=== PATIENT | female | born 1970 | race Caucasian/White ===

== ENCOUNTER 2019-09-24 08:09 | Outpatient (CLI) | payer OTHER, SELFPAY ==
--- NOTE | ~2019-09-24 | MM_ITS ---
EXAMINATION: MM screening shell BI w arely HISTORY: Screening mammogram TECHNIQUE: Craniocaudal and mediolateral oblique 3-D tomosynthesis images were obtained and synthetic 2-D images were generated. CAD analysis was submitted and interpreted. COMPARISON: Comparison to multiple prior studies sequentially, with oldest reviewed study dated 02/28. BREAST PARENCHYMAL COMPOSITION: The breasts are almost entirely fatty. FINDINGS: There is no evidence of suspicious mass, calcification, or architectural distortion to sugg est malignancy in either breast. There has been no suspicious interval change. IMPRESSION: 1. No mammographic evidence of malignancy. 2. Recommend routine screening mammography in one year. BI-RADS Category 1: Negative Reviewed, dictated and finalized at location A.
== END 2019-09-24 08:10 | disposition home or self-care (01) ==
PROVIDERS: Visit Provider Obstetrics & Gynecology Gynecology
DX: Z12.31 Encounter for screening mammogram for malignant neoplasm of breast (principal)
CPT/HCPCS: 77063; 77067

== ENCOUNTER 2021-09-24 08:10 | Outpatient (CLI) | payer OTHER, SELFPAY ==
--- NOTE | ~2021-09-24 | MM_ITS ---
EXAMINATION: MM screening shell BI w arely HISTORY: Screening TECHNIQUE: Craniocaudal and mediolateral oblique 3-D tomosynthesis images were obtained and synthetic 2-D images were generated. CAD analysis was submitted and interpreted. COMPARISON: Comparison to multiple prior studies sequentially, with oldest reviewed study dated 04/19. BREAST PARENCHYMAL COMPOSITION: The breasts are almost entirely fatty. FINDINGS: There is no evidence of suspicious mass, calcification, or architectural distortion to sugg est malignancy in either breast. There has been no suspicious interval change. IMPRESSION: 1. No mammographic evidence of malignancy. 2. Recommend routine screening mammography in one year. BI-RADS Category 1: Negative Reviewed, dictated and finalized at location A.
== END 2021-09-24 08:11 | disposition home or self-care (01) ==
LOC: ANHIMG 08:12
PROVIDERS: Visit Provider Nurse Practitioner
DX: Z12.31 Encounter for screening mammogram for malignant neoplasm of breast (principal)
CPT/HCPCS: 77063; 77067

== ENCOUNTER 2023-03-13 09:16 | Outpatient (CLI) | payer OTHER, SELFPAY ==
--- NOTE | ~2023-03-13 | MM_ITS ---
EXAMINATION: MM screening shell BI w arely HISTORY: Screening TECHNIQUE: Craniocaudal and mediolateral oblique 3-D tomosynthesis images were obtained and synthetic 2-D images were generated. CAD analysis was submitted and interpreted. COMPARISON: Comparison to multiple prior studies sequentially, with oldest reviewed study dated 04/21. BREAST PARENCHYMAL COMPOSITION: There are scattered areas of fibroglandular density. FINDINGS: There is no evidence of suspicious mass, calcification, or architectural distortion to sugg est malignancy in either breast. There has been no suspicious interval change. IMPRESSION: 1. No mammographic evidence of malignancy. 2. Recommend routine screening mammography in one year. BI-RADS Category 1: Negative Reviewed, dictated and finalized at location A. S PROFESSIONAL
== END 2023-03-13 09:17 | disposition home or self-care (01) ==
PROVIDERS: Visit Provider Nurse Practitioner
DX: Z12.31 Encounter for screening mammogram for malignant neoplasm of breast (principal)
CPT/HCPCS: 77063; 77067

== ENCOUNTER 2023-11-09 14:38 | Outpatient (CLI) | payer OTHER, SELFPAY ==
--- NOTE | ~2023-11-09 | US_ITS ---
US pelvic complete w TV Ordering provider: Trena Luo, History: . pelvic pain . Comparison: None. Technique: Transabdominal and endovaginal ultrasound of the pelvis (Doppler ultrasound interrogation techniques used as needed for this exam.) FINDINGS: CERVIX: Normal. UTERUS: Measures 7x 3.4x 5.4 cm in length which is within normal limits and is anteverted. No myomet rial masses. Heterogenous echogenicity. ENDOMETRIUM: Normal in thickness measuring 2.6 mm. No endometrial masses, cysts or fluid. CUL DE SAC: No free fluid. RIGHT OVARY: Not visualized. LEFT OVARY: Normal in size measuring 1.4x 0.8x 1.5 cm. Normal echotexture. Doppler vascular flow pres ent. ADNEXA: Normal. No mass. IMPRESSION: Heterogenous echogenicity of the uterus. Possibility of fibroids cannot be excluded. Follow-up advise d. Right ovary is not visualized. Otherwise, normal pelvic ultrasound. Reviewed, dictated and finalized at location A. IMPRESSION: Heterogenous echogenicity of the uterus. Possibility of fibroids cannot be excl uded. Follow-up advised. Right ovary is not visualized. Otherwise, normal pelvi c ultrasound.
== END 2023-11-09 14:39 | disposition home or self-care (01) ==
LOC: ANHIMG 14:38
PROVIDERS: Visit Provider Nurse Practitioner
DX: R10.2 Pelvic and perineal pain (principal)
CPT/HCPCS: 76830; 76856

== ENCOUNTER 2024-04-15 10:04 | Outpatient (CLI) | payer OTHER, SELFPAY ==
--- NOTE | ~2024-04-15 | MM_ITS ---
EXAMINATION: MM screening shell BI w arely HISTORY: Screening TECHNIQUE: Craniocaudal and mediolateral oblique 3-D tomosynthesis images were obtained and synthetic 2-D images were generated. CAD analysis was submitted and interpreted. COMPARISON: Comparison to multiple prior studies sequentially, with oldest reviewed study dated 06/2016. BREAST PARENCHYMAL COMPOSITION: Not Dense: The breasts are almost entirely fatty. FINDINGS: There is no evidence of suspicious mass, calcification, or architectural distortion to sugg est malignancy in either breast. There has been no suspicious interval change. IMPRESSION: 1. No mammographic evidence of malignancy. 2. Recommend routine screening mammography in one year. BI-RADS Category 1: Negative Reviewed, dictated and finalized at location A. 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
--- NOTE | ~2024-04-15 | DEXA_ITS ---
Bone Density Report Name: MANISHA SANTOS Age: 53 Sex: Female Ethnicity: White Date of : 1970 Indication: postmenopausal; screening for osteoporosis; height loss; Referring Provider: ELHAM, ZECHARIAH Study: Bone densitometry was performed. Exam Date: April 15, 2024 Accession number: [id number] Bone Density: Region BMD T-score Z-score Classification AP Spine(L1-L4) 1.045 0.0 1.0 Normal Femoral Neck (Left) 0.911 0.6 1.6 Normal Total Hip (Left) 1.198 2.1 2.8 Normal Femoral Neck (Right) 0.954 0.9 2.0 Normal Total Hip (Right) 1.209 2.2 2.8 Normal Total Hip Mean 1.203 2.2 2.8 Normal World Health Organization criteria for BMD impression classify patients as: Normal (T-score at or above -1.0), Osteopenia (T-score between -1.0 and -2.5), or Osteoporosis (T-score at or below -2.5). 10-year Fracture Risk: FRAX not reported because: All T-scores for Spine Total, Hip Total, Femoral Neck at or above -1.0 Clinical Information Provided by Patient: Has used the following medications: HRT (i.e. estrogen/hormone therapy), Vitamin D Patient maximum height was 68 Menopause Age: 53 No regular weight bearing exercise Drinks caffeinated beverages Onset of menses at age 11 Number of children 2 Impression: The patient has normal bone mass. Discussion: BONE DENSITY IS ABOVE THE MINIMUM DESIRABLE LEVEL AT ALL SKELETAL SITES TESTED. This patient?s bone mineral density is above the minimum desirable level (T-score -1.0 or better) at all sites measured. The patient should follow a healthful lifestyle (good nutrition with adequate calcium and vitamin D, and appropriate weight-bearing exercise). Follow-Up: Consider repeating this study in 5 years or sooner if there is some new clinical indication. Reported by: TERESO on 04/15/2024 10:41:00 AM. Reviewed, dictated and finalized at location AVincent QUIROZ
--- OUTSIDE RECORDS SUMMARY | 2024-04-21 06:17 | XMS_ITS | Patient Health Summary ---
Author Organization [facility] [employer] Address [address] [place] [address] Care Team Providers Care Invoicing Machine Operator Name Role Phone Nasrin Javier MD Primary Care Provider [phone]- [phone] Note from [facility],non-owned Affiliates and Associated Physician Practices is amultiple site organization consisting of ambulatory clinics and hospital sitesin [place], [place], [place] and [place]. This disclosure is being madepursuant to the Care Everywhere program and may not contain all information available regarding this patient. Last updated 17.[facility] [employer] Allergies No known active allergies Medications * Be aware that medications may not be up to date on this document. Alwaysverify current medications with the patient. * Other Reasons: control * LEVOTHYROXINE SODIUM PO * olmesartan (BENICAR) 5 MG tablet Take 5 mg by mouth once daily Social History Tobacco Use Types Packs/Day Years Used Date Smoking Tobacco: Never Smokeless Tobacco: Never Tobacco Cessation:Counseling Given: Yes Alcohol Use Standard Drinks/Week Comments Yes 1 (1 standard drink = 0.6 oz pur e alcohol) Sex and Gender Information Value Date Recorded Sex Assigned at Not on file Gender Identity Not on file Sexual Orientation Not on file Last Filed Vital Signs Vital Sign Reading Time Taken Comments Blood Pressure 120/74 04/03/2019 10:08 AM JR. SYSTEMS ADMINISTRATOR Pulse 90 04/03/2019 10:08 AM JR. SYSTEMS ADMINISTRATOR Temperature 36.8 ??C (98.2 ??F) 04/03/2019 10:[address] Respiratory Rate 16 04/03/2019 10:08 AM JR. SYSTEMS ADMINISTRATOR Oxygen Saturation 98% 04/03/2019 10:08 AM JR. SYSTEMS ADMINISTRATOR Inhaled Oxygen Concentration - - Weight 108.9 kg (240 lb) 04/03/2019 10:08 AM JR. SYSTEMS ADMINISTRATOR Height 172.7 cm (5' 8 ) 04/03/2019 10:08 AM JR. SYSTEMS ADMINISTRATOR Body Mass Index 36.49 04/03/2019 10:08 AM JR. SYSTEMS ADMINISTRATOR Procedures * STREP A SCREEN - POINT OF CARE (AMB) STL(Performed 04/29/2018) Performed for Acute URI Results * STREP A SCREEN - POINT OF CARE (AMB) STL (04/29/2018 1:02 PM JR. SYSTEMS ADMINISTRATOR) Strep A Rapid POCT Negative Negative Strep A Internal Control Present Lot # [id number] Expiration Date 07/28/2019 Throat ENTIRE THROAT (SURFACE REGION OF NECK) / Unknown 04/29/2018 1:02 PM JR. SYSTEMS ADMINISTRATOR Tabitha Jackson DIRECTOR QUALITY SYSTEMS-PROJECT SCHEDULER LAB - POINT OF CARE ORDERABLES Care Teams Invoicing Machine Operator Relationship Specialty [place] [address] [place] [phone] PCP - General Internal Medicine 04/29/18
--- OUTSIDE RECORDS SUMMARY | 2024-04-21 06:17 | XMS_ITS | Referral Summary ---
Author Organization [facility] [employer] Address [address] [place] [address] Care Team Providers Care Impregnating Tank Operator Name Role Phone Nasrin Javier MD Primary Care Provider [phone]- [phone] Source Comments [facility] [employer],non-owned Affiliates and Associated Physician Practices is amultiple site organization consisting of ambulatory clinics and hospital sitesin [place], [place], [place] and [place]. This disclosure is being madepursuant to the Care Everywhere program and may not contain all information available regarding this patient. Last updated 17.[facility] [employer] Allergies No known active allergies Medications * Be aware that medications may not be up to date on this document. Alwaysverify current medications with the patient. Medication Sig Dispensed Refills Start Date End Date Status OtherIndications: control Reasons: control Active LEVOTHYROXINE SODIUM PO Active olmesartan (BENICAR) 5 MG tablet Take 5 mg by mouth once daily Active Social History Tobacco Use Types Packs/Day Years [...] Comments Blood Pressure 120/74 04/03/2019 10:08 AM GLOBAL SAFETY OFFICER Pulse 90 04/03/2019 10:08 AM GLOBAL SAFETY OFFICER Temperature 36.8 ??C (98.2 ??F) 04/03/2019 10:[address] Respiratory Rate 16 04/03/2019 10:08 AM GLOBAL SAFETY OFFICER Oxygen Saturation 98% 04/03/2019 10:08 AM GLOBAL SAFETY OFFICER Inhaled Oxygen Concentration - - Weight 108.9 kg (240 lb) 04/03/2019 10:08 AM GLOBAL SAFETY OFFICER Height 172.7 cm (5' 8 ) 04/03/2019 10:08 AM GLOBAL SAFETY OFFICER Body Mass Index 36.49 04/03/2019 10:08 AM GLOBAL SAFETY OFFICER Plan of Treatment Not on file Care Teams Impregnating Tank Operator Relationship Specialty [place] [address] [place] [phone] PCP - General Internal Medicine 04/29/18
--- OUTSIDE RECORDS SUMMARY | 2024-04-21 06:17 | XMS_ITS | Clinical Summary ---
Author Organization [facility] Address [address] [place] [address] Care Team Providers Care Kst Operator Name Role Phone Nasrin Javier MD Primary Care Provider +1- [phone] Source Comments [facility],non-owned Affiliates and Associated Physician Practices is amultiple site organization consisting of ambulatory clinics and hospital sitesin [place], [place], [place] and [place]. This disclosure is being madepursuant to the Care Everywhere program and may not contain all information available regarding this patient. Last updated 17.[facility] Allergies No known active allergies Medications * [...] Comments Blood Pressure 120/74 04/03/2019 10:08 AM EDUCATIONAL TECHNOLOGIST Pulse 90 04/03/2019 10:08 AM EDUCATIONAL TECHNOLOGIST Temperature 36.8 ??C (98.2 ??F) 04/03/2019 10:[address] Respiratory Rate 16 04/03/2019 10:08 AM EDUCATIONAL TECHNOLOGIST Oxygen Saturation 98% 04/03/2019 10:08 AM EDUCATIONAL TECHNOLOGIST Inhaled Oxygen Concentration - - Weight 108.9 kg (240 lb) 04/03/2019 10:08 AM EDUCATIONAL TECHNOLOGIST Height 172.7 cm (5' 8 ) 04/03/2019 10:08 AM EDUCATIONAL TECHNOLOGIST Body Mass Index 36.49 04/03/2019 10:08 AM EDUCATIONAL TECHNOLOGIST Plan of Treatment Health Maintenance Due Date Last Done Comments COLOGUARD (AGES 45-75) - COL ON CA SCREENING 1970 COLON MONITORING 1969 COLONOSCOPY - COLON CA SCREENING 1969 CT COLONOGRAPHY - COLON CA SCREENING 1970 Colorectal Cancer Screening 1970 FIT - COLON CA SCREENING 1969 FLEX SIG - COLON CA SCREENING 1969 LIPID TESTING 1970 MAMMOGRAM 1970 HIV SCREENING 1984 HEPATITIS C SCREENING 09/08/1987 DTAP/TDAP/TD VACCINES (1 - Tdap) 1988 HEPATITIS B VACCINE (1 of 3 - 19+ 3-dose series) 1988 PAP with HPV 09/13/1999 SCREENING FOR DIABETES 04/29/2018 PNEUMOCOCCAL VACCINE 50+ (1 of 1 - PCV) 09/13/2019 ZOSTER VACCINE (1 of 2) 09/13/2019 COVID-19 VACCINE ( - 2023-2 5 season) 2023 INFLUENZA VACCINE (#1) 2023 DEPRESSION SCREENING 03/30/2024 HIB VACCINE Aged Out No longer eligi ble based on patient's age to complete this topic HPV VACCINE Aged Out No longer eligi ble based on patient's age to complete this topic MENINGOCOCCAL (Group B) VACCINE Aged Out No longer eligible based on patient's age to complete this topic MENINGOCOCCAL VACCINE Aged Out No rosa maria brian eligible based on patient's age to complete this topic PNEUMOCOCCAL VACCINE Aged Out No long er eligible based on patient's age to complete this topic Care Teams Kst Operator Relationship Specialty [place] [address] [place] [phone] PCP - General Internal Medicine 04/29/18
--- OUTSIDE RECORDS SUMMARY | 2024-04-21 06:18 | XMS_ITS | Encounter Summary ---
Author Organization [facility] Address [address] [place] [address]. [place] [address] [place] [address] Care Team Providers Care Machine Setter And Repairer Name Role Phone aNsrin oLpes MD Primary Care Pro vider Encounter Details Date Type Department Care Team (Late st Contact Info) Description 04/02/2023 Abstract [facility], [address] [address] Rosy Berry MA Social History Tobacco Use Types Packs/Day Years Used Date Smoking Tobacco: Never Smokeless Tobacco: Never Alcohol Use Standard Drinks/Week Comments Yes 0 (1 standard drink = 0.6 oz pur e alcohol) social Comments No Sex and Gender Information Value Date Recorded Sex Assigned at Not on file Legal Sex Female 4:43 PM CDT Gender Identity Not on file Sexual Orientation Not on file documented as of this encounter Plan of Treatment Not on file documented as of this encounter Procedures Procedure Name Priority Date/Time Associated Diagnosis Comments TSH (OUTSIDE LAB) Routine 11/12/2023 CBC (OUTSIDE LAB) Routine 11/12/2023 FREE T3 Routine 11/12/2023 COMPREHENSIVE METABOLIC PANEL Routine 11/12/2023 LIPID PANEL Routine 11/12/2023 HEMOGLOBIN, GLYCOSYLATED Routine 11/12/2023 THYROXINE, FREE (FT4) Routine 11/12/2023 VITAMIN D, 25 OH Routine 11/12/2023 MAGNESIUM Routine 11/12/2023 CK (CPK) Routine 03/26/2022 HEMOGLOBIN, GLYCOSYLATED Routine 07/30/2021 COMPREHENSIVE METABOLIC PANEL Routine 07/30/2021 COMPREHENSIVE METABOLIC PANEL Routine 07/30/2021 LIPID PANEL Routine 07/30/2021 LIPID PANEL Routine 07/30/2021 THYROID STIM HORMONE TSH Routine 07/30/2021 documented in this encounter Results * CBC (OUTSIDE LAB) (11/12/2023) WBC 4.9 HGB 13.6 HCT 42.1 PLT 256 11/12/2023 us Default History Genericprovider LAB-OUTSIDE/ABST RACTED Final Result * COMPREHENSIVE METABOLIC PANEL (11/12/2023) SODIUM S/P/B 139 POTASSIUM S/P/B 4.3 CO2 30 CHLORIDE S/P/B 104 GLUCOSE 102 mg/dL CALCIUM S/P/B 9.4 BUN 18 CREATININE S/P/B 1.0 0.5 - 1.0 GFR ESTIMATE 63.8 ALKALINE PHOSPHATASE S/P/B 92 ALT 20 AST 21 BILIRUBIN TOTAL S/P/B 0.55 ALBUMIN S/P/B 4.47 3.5 - 5.0 TOTAL PROTEIN S/P/B 7.59 GLOBULIN 3.1 11/12/2023 us Default History Genericprovider LABORATORY Final Result * LIPID PANEL (11/12/2023) Pathologist [facility] CHOLESTEROL 209.7 HDL 51.2 TRIGLYCERIDES 104 NON HDL CHOLESTEROL 159 LDL (CALCULATED) 138 11/12/2023 Default History Genericprovider LABORATORY Final Result * HEMOGLOBIN, GLYCOSYLATED (11/12/2023) Pathologist [facility] HGB A1C 5.9 % 11/12/2023 Default History Genericprovider LABORATORY Final Result * VITAMIN D, 25 OH (11/12/2023) [facility] VITAMIN D 25 HYDROXY S/P/B 88.4 11/12/2023 Default History Genericprovider LABORATORY Final Result * TSH (OUTSIDE LAB) (11/12/2023) Pathologist [facility] TSH 1.3 11/12/2023 [facility] Genericprovider LAB-OUTSIDE/ABST RACTED Final Result * THYROXINE, FREE (FT4) (11/12/2023) Pathologist [facility] FREE T4 0.86 11/12/2023 Default History Genericprovider LABORATORY Final Result * FREE T3 (11/12/2023) Pathologist [facility] FREE T3 2.71 11/12/2023 Default History Genericprovider LABORATORY Final Result * MAGNESIUM (11/12/2023) Pathologist [facility] MAGNESIUM 2.0 11/12/2023 us Default History Genericprovider LABORATORY Final Result * CK (CPK) (03/26/2022) Pathologist [facility] CPK Comment:error,deleted 03/26/2022 [facility] History Genericprovider LABORATORY Edited Result - Final * (ABNORMAL) COMPREHENSIVE METABOLIC PANEL (07/30/2021) Pathologist [facility] SODIUM S/P/B 144 GLUCOSE 96 mg/dL AST 17 BUN 18 CREATININE S/P/B 1.24(A) 0.5 - 1.0 CALCIUM S/P/B 10.3 POTASSIUM S/P/B 4.7 CHLORIDE S/P/B 109 ALT 13 GFR ESTIMATE 57 Result [facility] Default History Genericprovider LABORATORY Final Result * LIPID PANEL (07/30/2021) Pathologist [facility] CHOLESTEROL 130 TRIGLYCERIDES 47 HDL 48 LDL (CALCULATED) 71 Result [facility] Default History Genericprovider LABORATORY Final Result * COMPREHENSIVE METABOLIC PANEL (07/30/2021) Pathologist [facility] SODIUM S/P/B 137 GLUCOSE 98 mg/dL AST 24 BUN 16 CREATININE S/P/B 0.95 0.5 - 1.0 CALCIUM S/P/B 9.4 POTASSIUM S/P/B 3.5 CHLORIDE S/P/B 101 ALT 21 GFR ESTIMATE >60 Result [facility] Default History Genericprovider LABORATORY Final Result * LIPID PANEL (07/30/2021) Pathologist [facility] CHOLESTEROL 205 TRIGLYCERIDES 179 HDL 66 LDL (CALCULATED) 103 Result [facility] Default History Genericprovider LABORATORY Final Result * HEMOGLOBIN, GLYCOSYLATED (07/30/2021) Pathologist [facility] HGB A1C 5.7 % Result [facility] Default History Genericprovider LABORATORY Final Result * THYROID STIM HORMONE, TSH (07/30/2021) Pathologist [facility] TSH 1.99 Result [facility] Default History Genericprovider LABORATORY Final Result documented in this encounter Visit Diagnoses Not on filedocumented in this encounter Care Teams Machine Setter And Repairer Relationship Specialty [place] [address] [phone] PCP - General INTERNAL MEDICINE 03/26/18 documented as of this encounter
--- OUTSIDE RECORDS SUMMARY | 2024-04-21 06:18 | XMS_ITS | Continuity of Care Document ---
Author Organization [facility] Address [address] [place] [address] Phone Care Team Providers Care Compressed Gases Tester Name Role Phone Nasrin Javier MD Unavailable Unavailable Allergies, Adverse Reactions, Alerts Substance Reaction Status Criticality No Known Allergies Active No Inform ation Medications Medication Instructions Dosage Effective Dates (start - stop) Status Comments WEGOVY 1 MG/0.5 ML PEN INJECT 1 MG SUBCUTANEOUSLY ONE TIME PER WEEK -ON THE SAME DAY EACH WEEK - Active alprazolam 0.25 mg tablet take 1 tablet by oral route 3 times every day as needed for anxiety 0.25 MG - Active zolpidem 5 mg tablet take 1 tablet by oral route every day at bedtime 5 MG - Active OLMESARTAN MEDOXOMIL 20 MG TAB TAKE 1 TABLET BY MOUTH EVERY DAY - Active LEVOTHYROXINE 75 MCG TABLET TAKE 1 TABLET BY MOUTH EVERY DAY - Active progesterone micronized 100 mg capsule take 1 capsule by oral route every day at bedtime - Active Vitamin D3 50 mcg (2,000 unit) capsule take 3 tablet by oral route every day 3 tablet - Active estradiol 0.5 mg/0.5 gram (0.1 %) transdermal gel packet Take .5mg once daily - Active testosterone (bulk) powder Take 5mg once daily - Active Wegovy 1 mg/0.5 mL subcutaneous pen injector inject (1MG) by subcutaneous route every week on the same day of each week 1 MG - No Longer Active Procedures Procedure Date OFFICE [id number] IMMUN ADMIN (INC PERCUTANEOUS) Yayo MARTINEZ IRST INJ INFLUENZA VACCINE, 0.5mL DOSAGE; FLUZONE OFFICE [id number] OFFICE [id number] PREVENTATIVE-EST: 40-64 COMPREHEN METABOLIC PANEL CMP HEMOGLOBIN A1C HGA1C, GLYCO LIPID PANEL THYROID STIMULATION HORMONE(TSH) 2021 ROUTINE VENIPUNCTURE OFFICE [id number] IMMUN ADMIN (INC PERCUTANEOUS) JUAN, F IRST INJ FLU VACC 4 NEIL 0.5mL DOSAGE BASIC METABOLIC PANEL(BMP) HEMOGLOBIN A1C HGA1C, GLYCO ROUTINE VENIPUNCTURE OFFICE [id number] Advance Directives Directive Yes / No Effective Date File Name No Information Encounters Encounter Description Practice Location Reason(s) For Visit Diagnoses Date Provider Providers Copied on Encounter [facility], [address], [place], [place], [address] , tel: [phone] [facility] No Information 5 Concepcion Alexandra . [address], [address], [place], [place], [address] , . tel: [phone] [facility], [address], [place], [place], [address] , tel: [phone] [facility] No Information 4 Concepcion Alexandra . [address], [address], [place], [place], [address] , . tel: [phone] [facility], [address], [place], [place], [address] , tel: [phone] [facility] No Information 4 Garrett Connor. [address], [address], [place], [place], [address] , . tel: [phone] [facility], [address], [place], [place], [address] , tel: [phone] [facility] No Information 4 Concepcion Alexandra . [address], [address], [place], [place], [address] , [place]. tel: [phone] OFFICE [id number] [facility], [address], [place], [place], [address] , tel: [phone] [facility] Discuss weight loss medication (chief complaint)C hronic Conditions (chief complaint) Class 3 ObesityBody mass index [BMI] 40.0-44.9, adultAcquired hypothyroidismP rediabetesEssen tial (primary) hypertension 4 Garrett Connor. [address], [address], [place], [place], [address] , . tel: [phone] Referring Provider: [address], [place], [address] . tel:[phone] OFFICE [id number] [facility], [address], [place], [place], [address] , tel: [phone] [facility] Dizziness (chief complaint) Body mass index [BMI] 38.0-38.9, adultEssential (primary) hypertension 3 Garrett Geeta. [address], [address], [place], [place], [address] , [place]. tel: [phone] Referring Provider: [address], [place], [address] . tel:[phone] OFFICE [id number] [facility], [address], [place], [place], [address] , tel: [phone] [facility] Patient encounter (chief complaint) Body mass index [BMI] 37.0-37.9, adultDysfunctio n of both eustachian tubes Sep-3 0- 2 Garrett Connor. [address], [address], [place], [place], [address] , . tel: [phone] Referring Provider: [address], [place], [address] . tel:[phone] PREVENTATIVE -EST: 40-64 [facility], [address], [place], [place], [address] , tel: [phone] [facility] Chronic Conditions (chief complaint)y early wellness (chief complaint) Encounter for screening mammogram for malignant neoplasm of breastEssential (primary) hypertensionMix ed hyperlipidemiaP rediabetesAcqui red hypothyroidismG astroesophageal reflux disease with esophagitis without hemorrhageBody mass index [BMI] 36.0-36.9, adultAnnual physical exam July-0 2 Concepcion Alexandra . [address], [address], [place], [place], [address] , [place]. tel: [phone] Referring Provider: [address], [place], [address] . tel:[phone] OFFICE [id number] TAILED [facility], [address], [place], [place], [address] , [place] tel: [phone] [facility] Chronic Conditions (chief complaint) Body mass index (BMI) 37.0-37.9, adultMixed hyperlipidemiaH ypothyroidism (acquired)Impai red fasting glucoseEssentia l (primary) hypertensionMor bid obesity Oct-0 0 Concepcion Alexandra . [address], [address], [place], [place], [address] , [place]. tel: [phone] Referring Provider: [address], [place], [address] . tel:[phone] OFFICE [id number] [facility], [address], [place], [place], [address] , tel: [phone] [facility] Chronic Conditions (chief complaint) Body mass index (BMI) 37.0-37.9, adultElevated fasting blood sugarEssential (primary) hypertensionHyp othyroidism (acquired)Mixed hyperlipidemia 9 Concepcion Alexandra . [address], [address], [place], [place], [address] , [place]. tel: [phone] Referring Provider: [address], [place], [address] . tel:[phone] [facility] [address], [place], [place], [address] , tel: [phone] [facility] HTN (chief complaint)h igh chol (chief complaint) Essential (primary) hypertensionHyp erlipidemia, unspecified hyperlipidemia type 9 Justin Correia. [address], [address], [place], [place], [address] , . tel: [phone] Referring Provider: [address], [place], [address] . tel:[phone] [facility], [address], [place], [place], [address] , tel: [phone] [facility] Chronic Conditions (chief complaint)y early physical wellness exam (chief complaint) Body mass index (BMI) 38.0-38.9, adultEssential (primary) hypertensionHyp othyroidism (acquired)Encou nter for general adult medical examination without abnormal findings 9 Concepcion Alexandra . [address], [address], [place], [place], [address] , . tel: [phone] Referring Provider: [address], [place], [address] . tel:[phone] [facility], [address], [place], [place], [address] , tel: [phone] [facility] Hypothyroidism, unspecified type 8 Concepcion Alexandra . [address], [address], [place], [place], [address] , . tel: [phone] [facility], [address], [place], [place], [address] , tel: [phone] [facility] Hyperlipidemia, unspecified hyperlipidemia type 8 Concepcion Alexandra . [address], [address], [place], [place], [address] , . tel: [phone] Family History Family Member Type Diagnosis Age At Onset Mother Problem (finding) hypertension Father Problem (finding) Myocardial infarction ( Cause Of ) Immunizations Vaccine Date Status Comments Fluzone Trivalent, split virus, 0.5mL dosage administered Source: New Immuniza tion Record Fluzone Quad, split virus, 0.5mL dosage administered Source: New Immuniza tion Record Fluzone Quad, split virus, 0.5mL dosage administered Note: KIERRAS ; Ivana urce: Other Registry Payers Payer name Insurance type Covered constitution party ID Authoriza tion(s) [employer] PPO CI [id number] [employer] PPO CI [id number] [employer] O CI [id number] Social History Type Description Quantity Date Captured Comments Sex Female Smoking Status No Information Sexual Orientation Straight or heterosexual Gender Identity Female Chief Complaint And Reason For Visit No Information Reason For Referral Reason For Referral No Information Plan Of Treatment Date Type Action Status Goal Dietary manageme nt education, guidance, and counseling completed Goal Dietary manageme nt education, guidance, and counseling completed Goal Dietary manageme nt education, guidance, and counseling completed Goal Dietary manageme nt education, guidance, and counseling completed Goal Dietary manageme nt education, guidance, and counseling completed Goal Dietary manageme nt education, guidance, and counseling completed Goal Dietary manageme nt education, guidance, and counseling completed Referral Ordered: SCREENING MAMMOGRAM (CAD) ordered Future Order: Lab Order TSH with Reflex FT4 ([id number]), Sent on: Sent History Of Present Illness Encounter Date Complaint History Of Presjai nt Illness Discuss weight loss medication T he patient is here today to discuss weight loss medications. She went through approx one year ago and was placed on hormone replacement therapy by a specialist pharmacy. She does feel like the hormones have helped with some symptoms. However, she is not losing weight and would like to start on Wegovy. She Chronic Conditions *See Chronic Conditions HPI Dizziness The patient is h ere today for evaluation and treatment of dizziness. The patient states that for the last several months she has been feeling dizzy when bending over and standing up. She was decorating her [employer] tree and noticed that when she bent over and stood up she got really dizzy . She checked her BP at that time and it was 90/60. She stopped her BP medication for 2-3 days and started taking it at night and noticed that her BP did increase to 110/70 and she did feel better. No other symptoms at this time. 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 She woke on Thursday with a headache, the headache lasted through Thursday better as the day went on. In addition, she started to have pressure in her ears 2 days ago. She had two episodes of feeling dizziness which lasted approx 30 seconds. She notes that if she sits the dizziness is better. She did start on a decongestion medication yesterday, and this A.M. with some relief. No other symptoms noted. Chronic Conditions *See Chronic Conditions HPI yearly wellness The patient is h ere for yearly wellness and f/u of chronic conditions. She has joined [employer] a week ago and is hoping to get into taking better care of herself. She and her are trying to institute some healthy lifestyle changes. 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 Chronic Conditions *See Chronic Conditions HPI Chronic Conditions *See Chronic Conditions HPI high chol LDL was 134 two moths ago. Has been trying to work on diet and exercise, but struggles. HTN patient here for FU on BP. She had a change about 2 months ago with her htn med. States she feels great on new med. Denies cp, sob, edema. Chronic Conditions yearly physical wellness exam Th e patient is here for her yearly wellness exam. She is having issues as listed for her b/p. She is otherwise feeling well. She continues to have menstrual cycles but is taking OCP. Chronic Conditions *See Chronic Conditions HPI Functional Status Date Functional Assessmen t No Information Instructions Date Instruction Additional Infor bonnie Will start on Wegovy , continue a health diet and recheck labs in 3 months. Related to Prediabetes Continue med and close f/u. Rela jennifer to Essential (primary) hypertension Continue the current meds and f/u with repeat labs as indicated. Related to Acquired hypothyroidism Dietary management e ducation, guidance, and counseling Related to Body mass index (BMI) 40.0-44.9, adult Dietary management e ducation, guidance, and counseling Related to Body mass index (BMI) 38.0-38.9, adult Dietary management e ducation, guidance, and counseling Related to Body mass index (BMI) 37.0-37.9, adult The patient is stabl e on the current medications. Does see SAW SETTER for her SAW SETTER care. She is due for mammogram and will be due for colonoscopy in 2022. She will have labs as ordered and will continue to work on diet/exercise for weight management and healthier lifestyle. Related to Annual physical exam Continue the current medication and follow diet and no eating prior to bedtime. Call for any concerning sx. like breakthrough GERD or dysphagia or unexplained weight loss. Related to Gastroesophageal reflux disease with esophagitis without hemorrhage Continue medication and monitori ng Related to Acquired hypothyroidism Continue low cholest rm diet and exercise for control of the lipids. We will continue to monitor as well. Related to Mixed hyperlipidemia Continue to encourag e the patient to focus on healthy diet and exercise Related to Prediabetes Continue medications as ordered and continue to monitor the b/p. Call for any concerns. Related to Essential (primary) hypertension Dietary management e ducation, guidance, and counseling Related to Body mass index (BMI) 36.0-36.9, adult The patient was enco uraged to work harder on diet; get exercise at least 30 minutes daily as tolerated and I have offered for the patient to see software engineering manager for help. Other options include joining weight loss program like Weight Wat[employer]. Related to Morbid obesity Recheck the lab as ordered Relat ed to Mixed hyperlipidemia Stable on the current medication s Related to Hypothyroidism (acquired) Continue to work o d iet/exercise and weight loss Related to Impaired fasting glucose Continue medications as ordered and continue to monitor the b/p. Call for any concerns. Related to Essential (primary) hypertension Dietary management e ducation, guidance, and counseling Related to Body mass index (BMI) 37.0-37.9, adult Continue diet/exercise. Related to Mixed hyperlipidemia Continue supplement and monitoring of the TSH. Related to Hypothyroidism (acquired) The patient will con tinue to work on diet/exercise and weight loss. (She has lost 9 lbs since her last OV 8 months ago) Related to Elevated fasting blood sugar Continue medications as ordered and continue to monitor the b/p. Call for any concerns. Related to Essential (primary) hypertension Dietary management e ducation, guidance, and counseling Related to Body mass index (BMI) 37.0-37.9, adult discussed healthy di et and exercise. discussed weight loss. Related to Hyperlipidemia, unspecified hyperlipidemia type stable, continue current med. Re lated to Essential (primary) hypertension Exercise The patient will con tinue to work on diet/exercise for weight management and we will recheck the labs as ordered. Increase aerobic exercise to 7 day/week at least 30 minutes. Related to Encounter for general adult medical examination without abnormal findings Continue supplement and monitoring of the TSH. Related to Hypothyroidism (acquired) We will start ARB (h ad ACEI cough). f/u in 6 weeks. Related to Essential (primary) hypertension Dietary management e ducation, guidance, and counseling Related to Body mass index (BMI) 38.0-38.9, adult Assessments Type Assessment Date No Information Patient Care Teams Name Effective Dates (start - stop) Status Members No Information
--- OUTSIDE RECORDS SUMMARY | 2024-04-21 06:18 | XMS_ITS | Clinical Summary ---
Author Organization [facility] Address [address] [place] [address]. [place], [place] [id number] [place] [address] Care Team Providers Care Laser Technician Name Role Phone Nasrin Lopes MD [facility] Pro vider Allergies No known active allergies Medications Clobetasol Propionate Emulsion 0.05 % Foam APPLY TO SCALP TWICE DAILY 02/19/2021 Active levothyroxine (SYNTHROID) 75 MCG tablet Take 1 tablet by mouth daily. 11/08/2021 Active olmesartan (BENICAR) 20 MG tablet Take 1 tablet (20 mg total) by mouth daily. 02/26/2023 Active Active Problems Problem Noted Date Diagnosed Date Essential (primary) hypertension 04/06/2023 Chest discomfort 06/05/2015 Jaw pain 05/15/2015 Palpitations 11/11/2012 Encounters Date Type Department Care Team Description 04/07/2024 Telephone [facility] [address] [address] Sintia Parra MD Lab Results from Last 3 Months Immunizations Name Administration Dates Next Due Influenza Adult (Generic) 02/11/2021,10/2019,01/06/2018,01/01/2018,2013 Tdap (Generic) 08/11/2019 Social History Tobacco Use Types Packs/Day Years Used Date Smoking Tobacco: Never Smokeless Tobacco: Never Tobacco Cessation:Counseling Given: Not Answered Alcohol Use Standard Drinks/Week Comments Yes 0 (1 standard drink = 0.6 oz pur e alcohol) 1 glass of wine a month Comments No Sex and Gender Information Value Date Recorded Sex Assigned at Not on file Legal Sex Female 4:43 PM CDT Gender Identity Not on file Sexual Orientation Not on file Last Filed Vital Signs Vital Sign Reading Time Taken Comments Blood Pressure 134/82 04/06/2023 11:04 AM SMELTER OPERATOR Pulse 85 04/06/2023 11:04 AM SMELTER OPERATOR Temperature 36.3 ??C (97.3 ??F) 03/03/2022 11:[address] Respiratory Rate 18 03/03/2022 11:38 AM SMELTER OPERATOR Oxygen Saturation 99% 04/06/2023 11:04 AM SMELTER OPERATOR Inhaled Oxygen Concentration - - Weight 117.9 kg (260 lb) 04/06/2023 11:04 AM SMELTER OPERATOR Height 175.3 cm (5' 9 ) 04/06/2023 11:04 AM SMELTER OPERATOR Body Mass Index 38.4 04/06/2023 11:04 AM SMELTER OPERATOR Plan of Treatment Health Maintenance Due Date Last Done Comments Annual Physical 1972 Hepatitis C 09/13/1987 Hepatitis B Vaccines (1 of 3 - 19+ 3-dose series) 1988 Mammogram Screening 2009 Zoster Vaccines (1 of 2) 09/13/2019 Cervical Cancer Screening Pap Smear (Age 30 to 64) Every 3 Years 03/27/2020 03/27/2017 Cervical Cancer Screening Pap with HPV Testing (Age 30 to 64) Every 5 Years 03/27/2022 03/27/2017 Cervical Cancer Screening with HPV 03/27/2022 COVID-19 Vaccine ( season) 2023 02/11/2021, 07/06/2020, 06/15/2020 DTaP, Tdap and Td Vaccines (2 - Td or Tdap) 08/10/2029 08/11/2019 Colorectal Cancer Screening Colonoscopy (10 Years) 12/13/2031 12/12/2021, 12/12/2021 Influenza Adult Completed 12/21/2023, 01/28, 01/05/2020, Additional history exists Meningococcal Vaccine Aged Out No rosa maria brian eligible based on patient's age to complete this topic Pneumococcal Vaccine: Pediatrics (0 to 5 Years) and At-Risk Patients (6 to 64 Years) Aged Out No longer eligible based on patient's age to complete this topic RSV Immunizations Under 20 Months Aged Out No longer eligible based on patient's age to complete this topic Procedures Procedure Name Priority Date/Time Associated Diagnosis Comments COLONOSCOPY Routine 12/12/2021 7:16 AM CDT from Last 3 Months or Most Recently Relevant to Health Maintenance Insurance [employer] [facility] Care Teams Laser Technician Relationship Specialty [place] [address] [place] [address] PCP - General INTERNAL MEDICINE 03/26/18
== END 2024-04-15 10:05 | disposition home or self-care (01) ==
LOC: ANHIMG 10:07
PROVIDERS: Visit Provider Nurse Practitioner
DX: Z12.31 Encounter for screening mammogram for malignant neoplasm of breast (principal); Z13.820 Encounter for screening for osteoporosis; Z78.0 Asymptomatic menopausal state
CPT/HCPCS: 77063; 77067; 77080